=== PATIENT | female | born 1940 ===

== ENCOUNTER 2020-01-28 13:44 | Outpatient (REF) | payer MEDICARE, SELFPAY | END 2020-01-28 13:45 | disposition home or self-care (01) | LOC: HO.LAB 13:44 | PROVIDERS: Visit Provider Internal Medicine | DX: Z20.828 Contact with and (suspected) exposure to other viral communicable diseases (principal) | CPT/HCPCS: 87635 ==

== ENCOUNTER 2020-04-14 13:53 | Outpatient (REF) | payer MEDICARE, SELFPAY | END 2020-04-14 13:54 | disposition home or self-care (01) | LOC: HO.LAB 13:53 | PROVIDERS: Visit Provider Internal Medicine | DX: Z20.822 Contact with and (suspected) exposure to COVID-19 (principal) | CPT/HCPCS: 36415; C9803; U0003 ==

== ENCOUNTER 2020-05-22 12:43 | Outpatient (REF) | payer MEDICARE, SELFPAY ==
--- NOTE | ~2020-05-22 | MM_ITS ---
EXAMINATION: MM SCREENING DIGITAL BREAST TOMOSYNTHESIS, BILATERAL CLINICAL INFORMATION: Screening. Asymptomatic. The lifetime risk of breast cancer based on the Tyrer-Cuzick Model is 1%. COMPARISON: Mammography: 11/13/2018, 09/28/2017, 08/28/2014, 08/22/2014 TECHNIQUE: Digital breast tomosynthesis is performed in both the craniocaudal and mediolateral oblique views along with computer-aided detection (CAD). Synthesized 2D images are generated from the tomosynthesis. FINDINGS: There are scattered areas of fibroglandular density (ACR BI-RADS breast composition Category b). There are no significant masses, abnormal calcifications, or other abnormalities. Parenchymal pattern is similar to prior studies. No developing density. MM/MM tomosynthesis screening BI IMPRESSION: No mammographic evidence of malignancy. ASSESSMENT: BI-RADS 1: Negative RECOMMENDATION: Routine annual mammography screening. This patient's information was entered into a reminder system with a target due date for their next mammogram.
== END 2020-05-22 12:44 | disposition home or self-care (01) ==
LOC: HO.MAMMO 12:43
PROVIDERS: PCP Internal Medicine Geriatric Medicine; Visit Provider Internal Medicine Geriatric Medicine
DX: Z12.31 Encounter for screening mammogram for malignant neoplasm of breast (principal)
CPT/HCPCS: 77063; 77067

== ENCOUNTER 2020-07-07 12:40 | Outpatient (REF) | payer MEDICARE, SELFPAY ==
--- NOTE | ~2020-07-07 | XR_ITS ---
EXAMINATION: XR LUMBOSACRAL SPINE CLINICAL INFORMATION: Low back pain COMPARISON: None TECHNIQUE: Three views of the lumbosacral spine. FINDINGS: 5 nonrib-bearing lumbar vertebral bodies are visualized. Mild dextroscoliosis of the lower lumbar spine. Alignment is otherwise within normal limits. Vertebral body heights are maintained. Moderately decreased L5/S1 disc space height with mild narrowing of disc spaces throughout the remainder of the lumbar spine. There are degenerative changes of the posterior elements of the lower lumbar spine. XR/XR lumbar spine 2-3V IMPRESSION: Degenerative changes of the lumbar spine. No compression deformity.
== END 2020-07-07 12:41 | disposition home or self-care (01) ==
LOC: HO.XRAY 12:40
PROVIDERS: PCP Internal Medicine Geriatric Medicine; Visit Provider Registered Nurse
DX: M54.5 Low back pain (principal)
CPT/HCPCS: 72100

== ENCOUNTER 2021-05-26 12:14 | Outpatient (REF) | payer MEDICARE, SELFPAY ==
--- NOTE | ~2021-05-26 | MM_ITS ---
EXAMINATION: MM SCREENING DIGITAL BREAST TOMOSYNTHESIS, BILATERAL CLINICAL INFORMATION: Screening. Asymptomatic. The lifetime risk of breast cancer based on the Tyrer-Cuzick Model is 2%. COMPARISON: Mammography: 05/22/2020, 11/13/2018, 09/28/2017 TECHNIQUE: Digital breast tomosynthesis is performed in both the craniocaudal and mediolateral oblique views along with computer-aided detection (CAD). Synthesized 2D images are generated from the tomosynthesis. Additional left MLO view is provided. FINDINGS: There are scattered areas of fibroglandular density (ACR BI-RADS breast composition Category b). There are no significant masses, abnormal calcifications, or other abnormalities. Parenchymal pattern is similar to prior studies. There is no developing density or architectural abnormality. The axilla and skin contours are unremarkable. No significant changes. MM/MM tomosynthesis screening BI IMPRESSION: No mammographic evidence of malignancy. ASSESSMENT: BI-RADS 1: Negative RECOMMENDATION: Routine annual mammography screening. This patient's information was entered into a reminder system with a target due date for their next mammogram.
== END 2021-05-26 12:15 | disposition home or self-care (01) ==
LOC: HO.MAMMO 12:14
PROVIDERS: PCP Internal Medicine Geriatric Medicine; Visit Provider Internal Medicine Geriatric Medicine
DX: Z12.31 Encounter for screening mammogram for malignant neoplasm of breast (principal)
CPT/HCPCS: 77063; 77067

== ENCOUNTER 2021-09-15 10:50 | Outpatient (REF) | payer MEDICARE, SELFPAY ==
--- NOTE | ~2021-09-15 | US_ITS ---
EXAMINATION: US ABDOMEN COMPLETE CLINICAL INFORMATION: Right upper quadrant pain. COMPARISON: MRA abdomen 09/08/2008. CT abdomen and pelvis 03/21/2007. TECHNIQUE: Real-time imaging of the abdominal viscera. FINDINGS: PANCREAS: Normal. ABDOMINAL AORTA: The proximal, mid, and distal segments are normal in caliber. INFERIOR VENA CAVA: Visualized portions are normal. LIVER: Normal. The liver is normal in size. The liver contour is normal. Parenchymal echogenicity is normal. No focal hepatic lesion. There is no intrahepatic biliary duct dilatation seen. GALLBLADDER: Normal. The gallbladder is physiologically distended without evidence of stones, sludge, polyps, wall thickening or pericholecystic fluid. COMMON BILE DUCT: Normal in caliber measuring 0.7 cm in diameter. RIGHT KIDNEY: Normal. No hydronephrosis. No renal calculi or focal parenchymal lesions. The kidney measures 9.7 cm in maximum dimension. LEFT KIDNEY: There is an anechoic cyst midpole measuring 5.6 x 4.1 x 5.4 cm. No additional cysts or solid mass seen. No hydronephrosis or renal calculi. The kidney measures 11.0 cm in maximum dimension. SPLEEN: Normal. The spleen measures 8.1 cm in maximum dimension. FREE FLUID: None. US/US abdomen complete IMPRESSION: Small anechoic cyst left kidney. The rest of the abdominal ultrasound is unremarkable.
== END 2021-09-15 10:51 | disposition home or self-care (01) ==
LOC: HO.US 10:50
PROVIDERS: Visit Provider Internal Medicine Geriatric Medicine
DX: R10.11 Right upper quadrant pain (principal)
CPT/HCPCS: 76700

== ENCOUNTER 2022-07-06 13:57 | Outpatient (REF) | payer OTHER, SELFPAY ==
--- NOTE | ~2022-07-06 | MM_ITS ---
EXAMINATION: MM SCREENING DIGITAL BREAST TOMOSYNTHESIS, BILATERAL CLINICAL INFORMATION: Screening. Asymptomatic. The lifetime risk of breast cancer based on the Tyrer-Cuzick Model is 0.7%. COMPARISON: Mammography: May 26, 2021 and studies dating back to September 28, 2017 TECHNIQUE: Digital breast tomosynthesis is performed in both the craniocaudal and mediolateral oblique views along with computer-aided detection (CAD). Synthesized 2D images are generated from the tomosynthesis. FINDINGS: There are scattered areas of fibroglandular density (ACR BI-RADS breast composition Category b). There are no significant masses, abnormal calcifications, or other abnormalities. MM/MM tomosynthesis screening BI IMPRESSION: No significant changes from prior exam. ASSESSMENT: BI-RADS 1: Negative RECOMMENDATION: Routine annual mammography screening. This patient's information was entered into a reminder system with a target due date for their next mammogram.
== END 2022-07-06 13:58 | disposition home or self-care (01) ==
LOC: HO.MAMMO 13:57
PROVIDERS: PCP Internal Medicine Geriatric Medicine; Visit Provider Internal Medicine Geriatric Medicine
DX: Z12.31 Encounter for screening mammogram for malignant neoplasm of breast (principal)
CPT/HCPCS: 77063; 77067

== ENCOUNTER 2022-10-19 07:58 | Outpatient (REF) | payer OTHER, SELFPAY ==
[2022-10-19 08:08] LABS: MANUAL DIFF FLAG NO
[2022-10-19 08:18] LABS: Basophils Absolute Auto 0.1 X10*3/uL (0.0-0.2); Basophils Percent Auto 0.7 % (0-2); Eosinophils Absolute Auto 0.5 X10*3/uL (0.0-0.4); Hematocrit 41.2 % (37.0-47.0); Hemoglobin 12.7 g/dl (12.0-16.0); Imm Gran Abs Auto 0.01 X10*3/uL (0.00-0.03); Imm Gran Pct Auto 0.1 % (0.0-0.4); Lymphocytes Absolute Auto 3.1 X10*3/uL (1.2-4.9); Lymphocytes Percent Auto 45.9 % (20-40); Mean Corpuscular HGB Conc 30.8 g/dl (31.0-35.0); Mean Corpuscular Hemoglobin 25.8 pg (27.0-33.0); Mean Corpuscular Volume 83.7 fL (80.0-98.0); Mean Platelet Volume 10.3 fL (9.4-12.3); Monocytes Absolute Auto 0.5 X10*3/uL (0.1-1.2); Monocytes Percent Auto 7.3 % (2-11); Neutrophils Absolute Auto 2.7 x10*3/uL (2.0-8.3); Platelet Count 235 X10*3/uL (160-400); Red Blood Count 4.92 X10*6/uL (4.20-5.50); Red Cell Distribution Width 15.2 % (11.0-16.0); White Blood Count 6.8 X10*3/uL (4.8-10.8)
[2022-10-19 08:54] LABS: Alanine Aminotransferase 13 U/L (0-31); Alkaline Phosphatase 50 U/L (39-117); Anion Gap 12 (12-20); Aspartate Amino Transferase 18 U/L (5-31); Bilirubin Total 0.4 mg/dL (0.0-1.0); Blood Urea Nitrogen 14 mg/dL (9-16); Carbon Dioxide 29 mmol/L (22-29); Chloride 105 mmol/L (96-108); Cholesterol 169 mg/dL; Estimated Glomerular Filt Rate > 60; Glucose Random 96 mg/dL (60-115); HDL Cholesterol 48 mg/dL; LDL Cholesterol Calculated 94 mg/dl; Potassium 4.6 mmol/L (3.3-5.1); Sodium 141 mmol/L (135-145); Total Protein 7.3 g/dL (6.5-8.0); Triglycerides 137 mg/dL
[2022-10-19 08:59] LABS: TSH reflex Free T4 5.52 uIU/mL (0.32-4.0)
== END 2022-10-19 07:59 | disposition home or self-care (01) ==
LOC: HO.LAB 07:58
PROVIDERS: PCP Internal Medicine Geriatric Medicine; Visit Provider Internal Medicine Geriatric Medicine
DX: E03.9 Hypothyroidism, unspecified (principal); Z79.82 Long term (current) use of aspirin; Z79.899 Other long term (current) drug therapy
CPT/HCPCS: 36415; 80053; 80061; 84439; 84443; 85025

== ENCOUNTER 2023-05-31 12:02 | Outpatient (REF) | payer OTHER, SELFPAY ==
[2023-05-31 15:42] LABS: Free T4 (Free Thyroxine) 1.09 ng/dL (0.71-1.85)
== END 2023-05-31 12:03 | disposition home or self-care (01) ==
LOC: HO.HHCL 12:02
PROVIDERS: Visit Provider Internal Medicine Geriatric Medicine
DX: E03.9 Hypothyroidism, unspecified (principal)
CPT/HCPCS: 36415; 84439; 84443

== ENCOUNTER 2023-07-12 14:20 | Outpatient (REF) | payer OTHER, SELFPAY | END 2023-07-12 14:21 | disposition home or self-care (01) | LOC: HO.MAMMO 14:20 | PROVIDERS: PCP Internal Medicine Geriatric Medicine; Visit Provider Internal Medicine Geriatric Medicine | DX: Z12.31 Encounter for screening mammogram for malignant neoplasm of breast (principal) | CPT/HCPCS: 77063; 77067 ==

== ENCOUNTER → 2023-07-12 14:30 | Outpatient (BNV) | payer OTHER, SELFPAY | PROVIDERS: PCP Internal Medicine Geriatric Medicine; Visit Provider Radiology Diagnostic Radiology | DX: Z12.31 Encounter for screening mammogram for malignant neoplasm of breast (principal) | CPT/HCPCS: 77063; 77067 ==

== ENCOUNTER 2023-07-13 17:35 | Emergency (ER) | payer OTHER, SELFPAY ==
--- NOTE | ~2023-07-13 | CT_ITS ---
EXAMINATION: CT ABDOMEN AND PELVIS WITH CONTRAST CLINICAL INFORMATION: Upper abdominal pain COMPARISON: Ultrasound abdomen 09/15/2021 TECHNIQUE: Multidetector volumetric images were obtained from the superior aspect of the liver through the pubic symphysis following administration 85 mL of Omnipaque 350 intravenous contrast. Sagittal and coronal reformatted images were obtained on the technologist's workstation. Oral contrast: No This CT examination was performed using dose optimization techniques as appropriate, variously including the following: *Automated exposure control *Adjustment of mA and/or kV according to patient size (this includes techniques or standardized protocols for targeted exams where dose is matched to indication/reason for exam; i.e. extremities or head) *Use of iterative reconstruction technique DLP: 504 mGy-cm FINDINGS: LUNG BASES: The visualized lung bases are unremarkable. LIVER, GALLBLADDER, AND BILIARY TREE: The liver is normal in size, shape, and attenuation. No focal hepatic lesion or biliary ductal dilatation is present. The gallbladder is unremarkable with no evidence of radiopaque gallstones, gallbladder wall thickening, or obvious pericholecystic inflammatory changes. PANCREAS: Unremarkable. SPLEEN: Unremarkable. ADRENAL GLANDS: Unremarkable. KIDNEYS AND URETERS: The kidneys are normal in size, shape, and attenuation. No hydronephrosis, hydroureter, or calculi seen. No perinephric stranding. A benign left posterior mid renal 5.0 cm Bosniak class I renal cyst is noted which requires no additional imaging or follow up. No solid renal masses are seen. BLADDER: Unremarkable. GASTROINTESTINAL TRACT: The small and large bowel are unremarkable. The appendix is not seen but there is no evidence of appendicitis evidence of appendicitis. ABDOMINAL WALL: No significant hernia is appreciated. LYMPH NODES: Normal. VASCULAR: Unremarkable. PELVIC VISCERA: The uterus is not seen. An abnormal adnexal mass is not detected. No free intraperitoneal fluid is present. OSSEOUS STRUCTURES: Unremarkable. CT/CT abdomen pelvis w IV con IMPRESSION: A cause for the patient's upper abdominal pain has not been found. Incidental note made of a benign left renal cyst which requires no additional imaging or follow up. Fleischner guidelines were followed.
--- NOTE | ~2023-07-13 | XR_ITS ---
EXAMINATION: XR CHEST CLINICAL INFORMATION: Cough COMPARISON: 12/16/2017 TECHNIQUE: 2 views of the chest were obtained. FINDINGS: No significant abnormality is noted involving the heart, lungs, mediastinum, bony thorax or soft tissues. XR/XR chest 2V IMPRESSION: Unremarkable examination.
[2023-07-13 17:42] VITALS: BP 139/52; PULSE 87; RESP 20; TEMP 37.1; O2SAT 98; BMI 29.4
--- NOTE | 2023-07-13 17:42 | ED.ABDPAIN ---
HPI - Abdominal Pain General Chief Complaint: Upper Respiratory Symptoms Stated Complaint: Abd pain Time Seen by Provider: 07/13/23 18:19 Source: patient, family (Great granddaughter), RN notes reviewed, old records reviewed and guest services representative Mode of arrival: ambulatory Limitations: language barrier History of Present Illness HPI narrative: 83-year-old female presents for evaluation of nausea, cough, sore throat. Patient reports that her symptoms started Monday night. She had some upper abdominal pain which has improved. She still complains of a dull, 2/10 pain The patient is a somewhat poor historian Her chief complaint appears to be nausea. Denies any shortness of breath but if soften The patient's vital signs on arrival to the ED are stable. 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 The patient's speech is unchanged Related Data Previous Rx's ?Medication ?Instructions ?Recorded ondansetron 4 mg disintegrating 4 mg PO Q8H PRN nausea and 07/13/23 tablet vomiting #20 tabs Allergies Allergy/AdvReac Type Severity Reaction Status Date / Time gadoteridol [From Prohance] Allergy Mild HIVES Verified 07/13/23 17:44 Review of Systems Constitutional: Reports body ache(s), Denies chills, Denies fever(s) and Denies headache(s) Eyes: Denies blurry vision Denies dizziness, Denies headache(s) and Reports sore throat Cardiovascular: Denies chest pain, Denies syncope and Denies dyspnea Respiratory: Reports cough and Denies dyspnea Gastrointestinal: Reports abdominal pain, Reports nausea and Reports vomiting Genitourinary: Denies dysuria and Denies pelvic pain Musculoskeletal: Denies back pain Skin/Breast: Denies rash Denies dizziness, Denies syncope and Denies headache(s) Psychiatric: Denies anxiety and Denies depression [facility] Social History Social History Advance Directives: No Advance Directives Information Provided: No Physical Exam ED Vital Signs: Vital Signs - 24 hr 07/13/23 17:42 07/13/23 19:00 Temperature 98.7 F 97.5 F Pulse Rate 87 78 Respiratory Rate 20 18 Blood Pressure 139/52 L 134/58 L Pulse Oximetry 98 95 Oxygen Delivery Method Room Air Room Air BMI result Body Mass Index 29.4 Const General: healthy appearing, comfortable, no acute distress, alert and awake Nutritional Appearance: well nourished Orientation/consciousness: patient oriented x3 HENMT Head: Yes normocephalic and Yes atraumatic Throat: Yes posterior oropharynx normal Eyes Eyelids: Yes eyelids normal Conjunctivae: conjunctivae normal Sclerae: sclerae normal Corneas: corneas normal Pupils: Equal, round and reactive pupils present EOM: EOMs intact bilaterally Neck Neck: Yes full ROM Resp Effort & Inspection: normal respiratory effort, able to speak in complete sentences, no audible wheezes and not labored Auscultation: clear to auscultation bilaterally Cardio Rate: regular rate Rhythm: regular rhythm GI Inspection: No distended Palpation (GI): Soft to palpation, not firm, Tenderness to palpation present (GI) in the epigastrum, in the LUQ and in the RUQ; not in the LLQ, not in the RLQ and with no rebound tenderness, no guarding and not rigid Skin General skin exam: elasticity normal Neuro General: patient oriented x3 Cranial nerves: Yes Equal, round and reactive pupils present and Yes Bilaterally intact EOM present Cognition (Neuro): normal cognition Extrem Other: Moving all extremities well without any obvious deformities Course Course Course Narrative: This is a Rapid Medical Examination (RME) in triage, full HPI, ROS, assessment and plan per primary provider in the Main ED. 83 yo Citizen Of The [place] speaking female presenting for evaluation of congestion, hoarse voice, cough for the last few days along with upper abdominal pain that occurred last night. No current abdominal pain. Plan: labs, CXR, viral swabs Medical Decision Making Medical Decision Making MDM Narrative: 83-year-old female presents for evaluation of nausea, flu-like symptoms and body aches. Her vital signs are stable on arrival. Her physical exam is reassuring. She is tender across the upper abdomen. She has no leukocytosis, anemia or left shift. She has no significant electrolyte abnormalities. LFTs are within normal limits, renal function within normal limits. Patient's flu swabs are negative. Strep test pending. Patient's chest x-ray is unremarkable. Clear the cause of her symptoms at this time but may be related to viral syndrome. Plan for CT scan of the abdomen pelvis to evaluate for additional pathology. Differential Diagnosis Differential Diagnoses: The differential diagnosis associated with the presentation includes Viral syndrome Upper respiratory infection Gastritis Peptic ulcer disease Biliary colic Pancreatitis Influenza Viral syndrome Strep pharyngitis Lab Data [facility] Lab Attestation statement: I reviewed the patient's lab results. See above 07/13/23 18:07 07/13/23 18:07 Labs: Lab Results 07/13/23 07/13/23 Range/Units 18:07 20:30 WBC 10.1 (4.8-10.8) X10*3/uL RBC 4.82 (4.20-5.50) X10*6/uL Hgb 12.5 (12.0-16.0) g/dl Hct 38.9 (37.0-47.0) % MCV 80.7 (80.0-98.0) fL MCH 25.9 L (27.0-33.0) pg MCHC 32.1 (31.0-35.0) g/dl RDW 15.9 (11.0-16.0) % Plt Count 239 (160-400) X10*3/uL MPV 9.7 (9.4-12.3) fL Immature Gran % (Auto) 0.4 (0.0-0.4) % Neut % (Auto) 66.1 (45-73) % Lymph % (Auto) 24.6 (20-40) % [place] % (Auto) 6.2 (2-11) % Eos % (Auto) 2.1 (0-4) % Baso % (Auto) 0.6 (0-2) % Lymph # (Auto) 2.5 (1.2-4.9) X10*3/uL [place] # (Auto) 0.6 (0.1-1.2) X10*3/uL Eos # (Auto) 0.2 (0.0-0.4) X10*3/uL Baso # (Auto) 0.1 (0.0-0.2) X10*3/uL Abs Immat Gran (auto) 0.04 H (0.00-0.03) X10*3/uL Absolute Neuts (auto) 6.7 (2.0-8.3) x10*3/uL Absolute Nucleated RBC 0.000 (0.0-0.012) X10*3/uL Nucleated RBC % (auto) 0.0 (0.0-0.2) /100WBC Sodium 137 (135-145) mmol/L Potassium 3.6 (3.3-5.1) mmol/L Chloride 103 (96-108) mmol/L Carbon Dioxide 25 (22-29) mmol/L Anion Gap 13 (12-20) BUN 15 (9-16) mg/dL Creatinine 0.94 (0.5-1.4) mg/dL Estim Creat Clear Calc 37.4 Estimated GFR 57 Random Glucose 137 H (60-115) mg/dL Calcium 9.5 (8.4-10.2) mg/dL Magnesium 2.1 (1.6-2.6) mg/dL Total Bilirubin 0.5 (0.0-1.0) mg/dL Direct Bilirubin 0.2 (0.0-0.5) mg/dL AST 17 (5-31) U/L ALT 11 (0-31) U/L Alkaline Phosphatase 52 (39-117) U/L Total Protein 7.6 (6.5-8.0) g/dL Albumin 4.1 (3.5-5.0) g/dL Lipase 19 (8-78) U/L Influenza Type A (PCR) NEGATIVE (Negative) Influenza Type B (PCR) NEGATIVE (Negative) RSV RNA Qual (PCR) NEGATIVE (Negative) SARS-CoV-2 RNA (RT-PCR) NEGATIVE (Negative) S. pyogenes GrpA ESTEFANY Negative (Negative) Medications Administered Discontinued Medications Generic Name Dose Route Start Last Admin Trade Name Freq PRN Reason Stop Dose Admin Acetaminophen 650 mg 07/13/23 18:36 07/13/23 19:06 Acetaminophen 325 Mg Tablet PO 07/13/23 18:37 650 mg ONCE ONE Administration Ondansetron HCl 4 mg 07/13/23 18:36 07/13/23 19:06 Ondansetron Odt 4 Mg Tab.Rapdis TRANSLINGU 07/13/23 18:37 4 mg ONCE ONE Administration Discharge Plan Discharge Clinical Impression: Acute upper abdominal pain, Nausea Patient Disposition: Home, Self-Care Instructions: Acute Nausea and Vomiting (ED) Additional Instructions: Your workup in the emergency room today was reassuring. This includes your blood work, CT scan as well as your viral swabs. You may use Zofran as needed for nausea/vomiting Follow-up with your primary doctor You may wish to see a GI doctor if her symptoms persist for an upper endoscopy Prescriptions: New ondansetron 4 mg tablet,disintegrating 4 mg PO Q8H PRN (Reason: nausea and vomiting) Qty: 20 0RF Print Language: Citizen Of [place]
[2023-07-13 18:13] LABS: Basophils Absolute Auto 0.1 X10*3/uL (0.0-0.2); Basophils Percent Auto 0.6 % (0-2); Eosinophils Absolute Auto 0.2 X10*3/uL (0.0-0.4); Eosinophils Percent Auto 2.1 % (0-4); Hematocrit 38.9 % (37.0-47.0); Hemoglobin 12.5 g/dl (12.0-16.0); Imm Gran Abs Auto 0.04 X10*3/uL (0.00-0.03); Imm Gran Pct Auto 0.4 % (0.0-0.4); Lymphocytes Absolute Auto 2.5 X10*3/uL (1.2-4.9); Lymphocytes Percent Auto 24.6 % (20-40); MANUAL DIFF FLAG NO; Mean Corpuscular HGB Conc 32.1 g/dl (31.0-35.0); Mean Corpuscular Hemoglobin 25.9 pg (27.0-33.0); Mean Corpuscular Volume 80.7 fL (80.0-98.0); Mean Platelet Volume 9.7 fL (9.4-12.3); Monocytes Absolute Auto 0.6 X10*3/uL (0.1-1.2); Monocytes Percent Auto 6.2 % (2-11); Neutrophils Absolute Auto 6.7 x10*3/uL (2.0-8.3); Neutrophils Percent Auto 66.1 % (45-73); Platelet Count 239 X10*3/uL (160-400); Red Blood Count 4.82 X10*6/uL (4.20-5.50); Red Cell Distribution Width 15.9 % (11.0-16.0); White Blood Count 10.1 X10*3/uL (4.8-10.8)
[2023-07-13 18:28] LABS: Alanine Aminotransferase 11 U/L (0-31); Albumin Level 4.1 g/dL (3.5-5.0); Alkaline Phosphatase 52 U/L (39-117); Anion Gap 13 (12-20); Aspartate Amino Transferase 17 U/L (5-31); Bilirubin Direct 0.2 mg/dL (0.0-0.5); Bilirubin Total 0.5 mg/dL (0.0-1.0); Blood Urea Nitrogen 15 mg/dL (9-16); Calcium 9.5 mg/dL (8.4-10.2); Carbon Dioxide 25 mmol/L (22-29); Chloride 103 mmol/L (96-108); Creatinine Clr Calc Pharmacy 37.4; Estimated Glomerular Filt Rate 57; Glucose Random 137 mg/dL (60-115); Lipase 19 U/L (8-78); Magnesium 2.1 mg/dL (1.6-2.6); Potassium 3.6 mmol/L (3.3-5.1); Sodium 137 mmol/L (135-145); Total Protein 7.6 g/dL (6.5-8.0)
[2023-07-13 18:49] LABS: Influenza A PCR NEGATIVE (Negative); Influenza B PCR NEGATIVE (Negative); Resp Syncy Virus RNA Qual PCR NEGATIVE (Negative); SARS COV2 PCR INHOUSE NEGATIVE (Negative)
[2023-07-13 19:00] VITALS: BP 134/58; PULSE 78; RESP 18; TEMP 36.4; O2SAT 95
[2023-07-13] MEDS: Acetaminophen 325 MG TABLET 650 MG PO (19:06)
[2023-07-13] MEDS: Ondansetron ODT 4 MG TAB.RAPDIS TRANSLINGU (19:06)
[2023-07-13 20:44] LABS: IDNOW Serial# 08D9AD1C; Strep A Nucleic Acid Negative (Negative)
[2023-07-13 22:12] VITALS: BP 134/58; PULSE 78; RESP 18; TEMP 36.4; O2SAT 95
== END 2023-07-13 22:13 | disposition home or self-care (01) ==
PROVIDERS: Physician Assistant; Emergency Provider Internal Medicine
DX: R10.10 Upper abdominal pain, unspecified (principal); R11.0 Nausea; R05.9 Cough, unspecified; J02.9 Acute pharyngitis, unspecified; Z03.818 Encounter for observation for suspected exposure to other biological agents ruled out; Z79.899 Other long term (current) drug therapy
CPT/HCPCS: 0241U; 71046; 74177; 80048; 80076; 83690; 83735; 85025; 87651; 99283; 99284

== ENCOUNTER 2023-08-23 06:23 | Outpatient (REF) | payer OTHER, SELFPAY | END 2023-08-23 06:24 | disposition home or self-care (01) | LOC: HO.LAB 06:23 | PROVIDERS: PCP Internal Medicine Geriatric Medicine; Visit Provider Internal Medicine Geriatric Medicine | DX: Z13.89 Encounter for screening for other disorder (principal) ==

== ENCOUNTER 2023-08-25 09:23 | Outpatient (REF) | payer OTHER, SELFPAY ==
[2023-08-25 09:35] LABS: Appearance Urine Clear; Color Urine Yellow; Glucose Urine UA Negative (Negative); Leukocyte Esterase Urine Small (1+) (Negative); Nitrite Urine Negative (Negative); UMIC TRIGGER UACC YES; Urine Blood Negative (Negative); Urine Ketones Trace mg/dL (Negative); Urine Protein Negative (Neg-Trace)
[2023-08-25 09:51] LABS: Bacteria Urine None Seen (None Seen); Hyaline Casts Urine 0-2 /LPF (0-2); RBC Urine 0-2 /HPF (0-2); UACC Culture Trigger YES; WBC Urine 0-5 /HPF (0-5)
== END 2023-08-25 09:24 | disposition home or self-care (01) ==
LOC: HO.LNP 09:23
PROVIDERS: Visit Provider Internal Medicine Geriatric Medicine
DX: R82.90 Unspecified abnormal findings in urine (principal)
CPT/HCPCS: 81001; 87086

== ENCOUNTER 2023-12-22 14:03 | Outpatient (REF) | payer OTHER, SELFPAY ==
--- NOTE | ~2023-12-22 | XR_ITS ---
EXAMINATION: XR KNEE, RIGHT CLINICAL INFORMATION: Chronic right knee pain COMPARISON: None available. TECHNIQUE: Four views of the right knee. FINDINGS: Mild medial and patellofemoral compartment osteoarthritis with a small joint effusion. Prominent patellar enthesopathy. No acute fracture. XR/XR knee RT 3V IMPRESSION: Mild medial and patellofemoral compartment osteoarthritis with a small joint effusion. Electronically signed by: Fernando Mcdowell MD 12/22/2023 03:32 PM EDT
== END 2023-12-22 14:04 | disposition home or self-care (01) ==
LOC: HO.HHCX 14:03
PROVIDERS: Visit Provider Student in an Organized Health Care Education/Training Program
DX: M25.561 Pain in right knee (principal); G89.29 Other chronic pain; R60.0 Localized edema
CPT/HCPCS: 73562

== ENCOUNTER 2024-01-30 12:39 | Outpatient (AMB) | payer OTHER, SELFPAY ==
--- NOTE | 2024-01-30 13:00 | MHC.OFFVIS ---
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 The patient describes her pain as sharp in nature. She denies any previous surgeries on her right knee. She denies any locking or giving way. She has not had a cortisone injection. She has done range of motion exercises which seemed to aggravate her pain. She denies any locking or giving way. Allergies gadoteridol [From [employer]] Allergy (Mild, Verified 07/13/23 17:44) HIVES Medication List - Last Reviewed 01/30/24 by ROHAN Cotto aspirin 81 mg PO DAILY diclofenac sodium 1% 2 grams topical Q12H levothyroxine mcg PO omeprazole 20 mg PO DAILY ondansetron 4 mg PO Q8H PRN simvastatin 40 mg PO BEDTIME PFSH Social History (Updated 01/30/24 @ 13:04 by ROHAN Cotto) Alcohol intake: never Patient Tobacco Use Status: Never used Tobacco Physical Exam Vital Signs: BMI result Body Mass Index 33.2 Const Other: Well-nourished well-developed very friendly female awake alert and oriented x3 in no acute distress Extrem Other: Bilateral lower extremity examination shows good capillary refill, no skin lesions noted, normal sensation light touch Right knee examination shows a minimal effusion, palpable crepitus with range of motion, pain with range of motion, no instability Office Procedures Joint Injection/Aspiration Joint Injection/Aspiration Primary Site: right knee Prep: site was prepped using aseptic technique Injected: 40 mg of, DepoMedrol and 1% plain lidocaine Procedure: The patient tolerated the procedure well Coding 93696 - Large joint Procedure code (CPT) selection complete Results Reviewed Results Reviewed: X-rays of the patient's right knee show moderate diffuse joint space narrowing, subchondral sclerosis, no acute bony abnormalities Assessment & Plan Assessment & Plan (1) Arthritis of right knee: Code(s): M17.11 - Unilateral primary osteoarthritis, right knee Category: Medical Plan Ms. Jad Jimenez presents with right knee pain due to degenerative joint disease. I had a lengthy discussion regarding the treatment options. The risks and benefits of a right knee cortisone injection were discussed at length with the patient. The patient wished to proceed. She tolerated the injection well. She will continue with her home exercise program. She will contact me prior to her follow-up appointment in 3 months should any questions or concerns arise. Feel free to call me at any time should questions regarding her orthopedic management arise. I spent 20 minutes in reviewing the patient's records and imaging studies, seeing the patient and documenting in the medical record. Orders: Orders AMB Joint Injection/Aspiration Today M17.11 - Unilateral primary osteoarthritis, right knee Coding Level of Care Code New Pt Level 3 (23244) Complex EM visit Add On G2211 Diagnoses Arthritis of right knee M17.11 CPT Codes Coding - 74081 Large joint: 90573 - Large joint ([id number])
[2024-01-30 13:02] VITALS: BMI 33.2
== END 2024-01-30 13:16 | disposition home or self-care (01) ==
LOC: HO.HOS 12:39
PROVIDERS: PCP Internal Medicine Geriatric Medicine; Visit Provider Orthopaedic Surgery
DX: M17.11 Unilateral primary osteoarthritis, right knee (principal)
CPT/HCPCS: 20610; 99203

== ENCOUNTER → 2024-01-30 12:39 | Outpatient (BNVA) | payer OTHER, SELFPAY | PROVIDERS: PCP Internal Medicine Geriatric Medicine; Visit Provider Orthopaedic Surgery | DX: M17.11 Unilateral primary osteoarthritis, right knee (principal) | CPT/HCPCS: 20610; 99202; J1010; J2003 ==

== ENCOUNTER 2024-02-20 06:08 | Outpatient (REF) | payer OTHER, SELFPAY ==
[2024-02-20 07:58] LABS: TSH reflex Free T4 7.89 uIU/mL (0.32-4.0)
[2024-02-20 08:35] LABS: Free T4 (Free Thyroxine) 0.89 ng/dL (0.71-1.85)
== END 2024-02-20 06:09 | disposition home or self-care (01) ==
LOC: HO.LAB 06:08
PROVIDERS: PCP Internal Medicine Geriatric Medicine; Visit Provider Internal Medicine Geriatric Medicine
DX: E03.9 Hypothyroidism, unspecified (principal)
CPT/HCPCS: 36415; 84439; 84443

== ENCOUNTER 2024-06-06 10:10 | Outpatient (REF) | payer OTHER, SELFPAY ==
--- OUTSIDE RECORDS SUMMARY | 2024-06-06 11:56 | XMS_ITS | Encounter Summary ---
Author Organization [employer] Address [address] [place] [address] Care Team Providers Care Pressure Tank Operator Name Role Phone Name, Brent PRESTON Primary Care Provider [phone] Reason for Visit * Reason Onset Date Comments Nurse Triage 06/05/2024 Encounter Details Date Type Department Care Team ([facility] st Contact Info) Description 06/05/2024 Telephone [facility] MEDICINE [address], [place] [id number] Name, MD Brent [address] [place] [address] Nurse Triage Social History Tobacco Use Types Packs/Day Years Used Date Smoking Tobacco: Never Smokeless Tobacco: Never Alcohol Use Standard Drinks/Week Comments Never 0 (1 standard drink = 0.6 oz pur e alcohol) Depression Answer Date Recorded Patient Health Questionnaire-9 Score 3 12/22/2023 Patient Health Questionnaire-9 Score 3 12/22/2023 Last PHQ-9: Questionnaire Data Not on file 0 12/22/2023 Housing Stability Answer Date Recorded What is your housing situation today? I have [address] [place] 12/22/[address] you li ve. Do you have problems with any of the following? None of the above 12/22/2023 Food Insecurity Answer Date Recorded Within the past 12 months, y ou worried that your food would run out before you got money to buy more: Never True 12/22/2023 Within the past 12 months,th e food you bought just didn't last and you didn't have enough money to get more: Never True Transportation Answer Date Recorded In the past 12 months, has l ack of transportation kept you from medical appts, meetings, work or from getting things needed for daily living? No 12/22/2023 Utilities Answer Date Recorded In the past 12 months, has t he electric, gas, oil or water company threatened to shut off services in your home? No 02/21/2024 Depression Answer Date Recorded Patient Health Questionnaire-2 Score 2 12/22/2023 Internet Access Answer Date Recorded Internet Access Q1 No 02/21/2024 Internet Access Q2 Not on file 02/21/2024 Comments Unknown Sex and Gender Information Value Date Recorded Sex Assigned at Female 01/31/2022 10:15 AM EDT Legal Sex Female 10:15 AM EDT Gender Identity Female 01/31/2022 10:15 AM EDT Sexual Orientation Straight 12/22/2023 3: 16 PM EDT documented as of this encounter Miscellaneous Notes * Telephone Encounter - Adriana Jaimes RN - 06/05/2024 3:07 PM EST No interpreter for the deaf needed as this news writer speaks [place]. Call returned to Diane Jimenez to triagebelow. Having abdominal pain x 3 days. Pain after solid foods. Pt reports having black formed stools. No vomiting. No urinary sx reported. Pt does have GERD and hx of ulcers. Pain resolves after BM. Pt has not had any fever. No MICHAEL sx or rash. 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 Protocol Used: Abdominal Pain - Female (Adult) Protocol-Based Disposition: See in Office or Video Visit Today Video visit offer not recorded Positive Triage Question: * Moderate pain (e.g., interferes with normal activities that comes and goes (cramps) lasts > 24hours (Exception: Pain with Vomiting or Diarrhea - see that Protocol.) * All higher-acuity triage questions were negative Care Advice Discussed: * Reassurance and Education - Mild Stomachache * Avoid Aspirin and NSAIDs * Reasons To Call Back - Severe pain lasts over 1 hour - Constant pain lasts over 2 hours - You become worse * Telephone Encounter - Wili Farrar - 06/05/2024 1:54 PM EST Symptoms: Abdominal Pain - Female - Not , Stools - Unusual Color Outcome: Schedule an urgent appointment (within 1 hour) or talk to a nurse or provider soon Reason: Color is red or black The caller accepted this outcome. Contact pt at [phone] documented in this encounter Plan of Treatment Not on file documented as of this encounter Visit Diagnoses Not on filedocumented in this encounter Additional Health Concerns Assessment Noted Time PHQ-9 Depression Total Score: 3 12/22/19 24 1:27 PM EDT documented as of this encounter Care Teams Pressure Tank Operator Relationship Specialty Start Date End Date Name, MD Brent [address] [place] [address] PCP - General Family Medicine 06/29/15 documented as of this encounter
--- OUTSIDE RECORDS SUMMARY | 2024-06-06 11:56 | XMS_ITS | Encounter Summary ---
Author Organization [facility] Address [address] [place] [address] Care Team Providers Care Volunteer Services Assistant Name Role Phone Name, Brent PRESTON Primary Care Provider [phone] Reason for Referral * Imaging (STAT) - Pending Review Specialty Diagnoses / Procedures Referred By Barron hallman Referred To Contact Radiology Diagnoses Generalized abdominal pain Procedures CT Abdomen Pelvis w/ Contrast Kecia Paniagua DO [address] [place] [address] Phone: tel: fax: [address] Phone: tel: fax: Referral ID Status Reason Start Date Expiration Date V isits Requested Visits Authorized [id number] Pending Review 06/06/2024 06/06/2025 1 1 Encounter Details Date Type Department Care Team (Late st Contact Info) Description 06/06/2024 9:00 AM EST Office Visit [facility] [address] [place], [place] [phone] Kecia Paniagua DO [address] [place], [place] [phone] Generalized abdominal pain (Primary Dx) Social History Tobacco Use Types Packs/Day Years [...] PM EDT documented as of this encounter Last Filed Vital Signs Vital Sign Reading Time Taken Comments Blood Pressure 144/66 06/06/2024 9:16 AM EST Pulse 73 06/06/2024 9:16 AM EST Temperature 36.6 ??C (97.9 ??F) 06/06/2024 9:16 AM ES T Respiratory Rate 18 06/06/2024 9:16 AM EST Oxygen Saturation 99% 06/06/2024 9:16 AM EST Inhaled Oxygen Concentration - - Weight 68 kg (150 lb) 06/06/2024 9:16 AM EST Height 154.9 cm (5' 1 ) 06/06/2024 9:16 AM EST Body Mass Index 28.34 06/06/2024 9:16 AM EST documented in this encounter Progress Notes * Kecia Paniagua, DO - 06/06/2024 9:00 AM EST SUBJECTIVE Diane Jimenez is a 84 y.o. female who presents for Sick Visit. She presents to [place] today c/o intermittent abd pain x 3 days. She says she gets lower abd pain when she eats heavier foods. She says she has never had this pain before. She denies any N/V or diarrhea. She says that she had constipation in the past but not any more. She says that her stools have been very dark brown for the last 3 days but nml today. She had anosebleed on Monday. She denies any BRBPR. She says that her abd pain goes away after she has a BM.She has also tried tylenol which resolves her pain. She has a h/o ulcers and takes prilosec daily. Her COMPOUNDING PHARMACY TECHNICIAN says that she used to see GI but stopped going because God healed her. She denies any urinary sx. She denies any urinary urgency or other urinary sx. No recent abx use. She says she recently traveled to [place], but no travel outside the . History provided by: Patient and relative director of casework department used: Yes Abdominal Pain This is a new problem. The current episode started in the past 7 days. The onset quality is sudden.The problem occurs intermittently. The problem has been unchanged. The pain is located in the LLQ and RLQ. The pain is moderate. The quality of the pain is colicky. The abdominal pain does not radiate. Pertinent negatives include no constipation, diarrhea, dysuria, fever, frequency, headaches, hematuria, nausea or vomiting. The pain is aggravated by eating. The pain is relieved by Palpation. She has tried acetaminophen for the symptoms. The treatment provided mild relief. Her past medical history is significant for PUD. Review of Systems Constitutional: Negative for activity change, appetite change, chills, fever and unexpected weight change. HENT: Nosebleeds: x1. Respiratory: Negative for cough and shortness of breath. Cardiovascular: Negative for chest pain, palpitations and leg swelling. Gastrointestinal: Positive for abdominal pain. Negative for abdominal distention, blood in stool, constipation, diarrhea, nausea, rectal pain and vomiting. Genitourinary: Negative for difficulty urinating, dysuria, flank pain, frequency, hematuria, urgency, vaginal discharge and vaginal pain. Neurological: Negative for weakness and headaches. 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 Constitutional: General: She is not in acute distress. Appearance: Normal appearance. Cardiovascular: Rate and Rhythm: Normal rate and regular rhythm. Heart sounds: Normal heart sounds. No murmur heard. Pulmonary: Effort: Pulmonary effort is normal. Breath sounds: Normal breath sounds. No wheezing or rhonchi. Abdominal: Tenderness: There is generalized abdominal tenderness. There is no right CVA tenderness, left CVA tenderness, guarding or rebound. Genitourinary: Rectum: Normal. Guaiac result negative. Neurological: General: No focal deficit present. Mental Status: She is alert and oriented to person, place, and time. Psychiatric: Mood and Affect: Mood normal. Assessment/Plan Diagnoses and all orders for this visit: Generalized abdominal pain Intermittent sx with diffuse TTP on exam, possible colitis -check basic labs -check UA/Ucx to r/o UTI -referred for STAT CT abd/pelvis -cont tylenol prn -advised rtc or go to ED if severe worsening pain, vomiting, or fevers --Follow-up with PCP as scheduled or sooner prn-- Current Outpatient Medications: acetaminophen (Tylenol) 500 MG tablet, Take 1 tablet by mouth every 6 (six) hours., Disp: , Rfl: aspirin (Aspirin Low Dose) 81 MG EC tablet, TAKE 1 TABLET BY MOUTH EVERYDAY AT NOON, Disp: 90 tablet, Rfl: 1 Calcium Carb-Cholecalciferol 600-10 MG-MCG tablet, TAKE 1 TABLET BY MOUTH TWICE DAILY AT NOON AND IN THE EVENING, Disp: 180 tablet, Rfl: 3 Diclofenac Sodium 1 % gel, APPLY 2 GRAMS TOPICALLY EVERY TWELVE HOURS, Disp: 100 g, Rfl: 1 docusate sodium (Colace) 100 MG capsule, TAKE 1 CAPSULE BY MOUTH TWICE DAILY AT NOON AND IN THE EVENING, Disp: 180 capsule, Rfl: 0 estradiol (Estrace) 0.1 MG/GM vaginal cream, Insert 1 g into the vagina 2 (two) times a week., Disp: 42.5 g, Rfl: 2 levothyroxine (Synthroid, Levoxyl) 100 MCG tablet, TAKE 1 TABLET BY MOUTH EVERY MORNING ON MONDAY THROUGH MONDAY OF EACH WEEK (HOLD ON MONDAY AND MONDAY), Disp: 90 tablet, Rfl: 2 lidocaine (Lidoderm) 5 % patch, APPLY 1 PATCH TOPICALLY TO SKIN, LEAVE ON FOR 12 HOURS AND OFF FOR 12 HOURS DIRECTED, Disp: 30 patch, Rfl: 1 mirabegron ER (Myrbetriq) 50 MG 24 hr tablet, Take 1 tablet by mouth in the morning. Swallow whole with water. Do not crush, chew and/or divide, Disp: , Rfl: omeprazole (PriLOSEC) [address] capsule, TAKE 1 CAPSULE BY MOUTH EVERYDAY AT NOON BEFORE MEALS, Disp: 90 capsule, Rfl: 1 simvastatin (Zocor) 40 MG tablet, TAKE 1 TABLET BY MOUTH AT BEDTIME, Disp: 90 tablet, Rfl: 1 Scribe Attestation: Deshawn Kaur, am serving as a scribe to document services personally performed by Kecia Benjamin, based on the patient's response to questions by provider and provider's statements to me. 06/06/24 9:59 AM Physicians Attestation: Kecia Kaur DO, have reviewed the information by the scribe, Deshawn Renteria, for accuracy and agree with its content. documented in this encounter Plan of Treatment Scheduled Orders Name Type Priority Associated Diagnoses Orde r Schedule T4, Free Lab Routine Generalized abdominal pain Expected: 06/06/2024 (Approximate), Expires: 06/06/2025 Lipid Panel, Standard Lab Routine Generalized abdominal pain Expected: 06/06/2024 (Approximate), Expires: 06/06/2025 TSH Lab Routine Generalized abdominal pain Expected: 06/06/2024 (Approximate), Expires: 06/06/2025 Vitamin D, 25-Hydroxy, Total, Immunoassay Lab Routine Generalized abdominal pain Expected: 06/06/2024 (Approximate), Expires: 06/06/2025 Hepatic Function Panel Lab Routine Generalized abdominal pain Expected: 06/06/2024 (Approximate), Expires: 06/06/2025 Hemoglobin A1c Lab Routine Generalized abdominal pain Expected: 06/06/2024 (Approximate), Expires: 06/06/2025 CBC Lab Routine Generalized abdominal pain Expected: 06/06/2024, Expires: 06/06/2025 Basic Metabolic Panel Lab Routine Generalized abdominal pain Expected: 06/06/2024 (Approximate), Expires: 06/06/2025 Amylase Lab Routine Generalized abdominal pain Expected: 06/06/2024 (Approximate), Expires: 06/06/2025 Lipase Lab Routine Generalized abdominal pain Expected: 06/06/2024, Expires: 06/06/2025 CT Abdomen Pelvis w/ Contrast Imaging STAT Generalized abdominal pain Expected: 06/06/2024, Expires: 06/06/2025 Culture, Urine, Routine Microbiology Routine Generalized abdominal pain Ordered: 06/06/2024 documented as of this encounter Procedures Procedure Name Priority Date/Time Associated Diagnosis Comments POCT URINALYSIS DIPSTICK Routine 06/06/2024 10:08 AM EST Generalized abdominal pain POCT HEMOGLOBIN Routine 06/06/2024 9:54 AM EST Generalized abdominal pain documented in this encounter Results * (ABNORMAL) POCT Urinalysis (06/06/2024 10:08 AM EST) Color, UA Yellow Clarity, UA Clear Glucose, UA Negative Bilirubin, UA Trace Comment:Small Ketones, UA Positive Comment:Trace Spec Grav, UA 1.025 Blood, UA Positive(A) Negative, None Detected Comment:Trace-Intact pH, UA 6.0 Protein, UA 3+ 500+++ Comment:30mg/dL Urobilinogen, UA 1.0 Leukocytes, UA Trace Negative, Rare, Trace Nitrite, UA Negative Negative, None Detected Appearance, UA clear QC Media Lot # [id number] Lot# Expiration Date Urine 06/06/2024 10:0 8 AM EST Kecia Paniagua DO POINT OF CARE TEST ENTER/NIMA T ORDERABLES Final Result * POCT Hemoglobin (06/06/2024 9:54 AM EST) Hemoglobin 13.1 12.0 - 15.0 QC Media Lot # [id number] Lot# Expiration Date Blood 06/06/2024 9:54 AM EST Kecia Paniagua DO POINT OF CARE TEST ENTER/NIMA T ORDERABLES Final Result documented in this encounter Visit Diagnoses Diagnosis Generalized abdominal pain- Primary Abdominal pain, generalized documented in this encounter Additional Health Concerns Assessment Noted Time PHQ-9 Depression Total Score: 3 12/22/19 24 1:27 PM EDT documented as of this encounter Care Teams Volunteer Services Assistant Relationship Specialty Start Date End Date Name, MD Brent [address] [place] [address] PCP - General Family Medicine 06/29/15 documented as of this encounter
--- OUTSIDE RECORDS SUMMARY | 2024-06-06 11:56 | XMS_ITS | Clinical Summary ---
Author Organization [facility] Address [address] [place] [address] Care Team Providers Care Silo Tender Name Role Phone Name, Brent PRESTON Primary Care Provider [phone] Allergies No known active allergies Medications mirabegron ER (Myrbetriq) 50 MG 24 hr tablet Take 1 tablet by mouth in the morning. Swallow whole with water. Do not crush, chew and/or divide Active acetaminophen (Tylenol) 500 MG tablet Take 1 tablet by mouth every 6 (six) hours. 1 Active estradiol (Estrace) 0.1 MG/GM vaginal cream Insert 1 g into the vagina 2 (two) times a week. 42.5 g 2 4 08/21/19 25 Active Calcium Carb-Cholecalcife rol 600-10 MG-MCG tablet TAKE 1 TABLET BY MOUTH TWICE DAILY AT NOON AND IN THE EVENING 180 tablet 3 4 Active Diclofenac Sodium 1 % gelIndications:Ch ronic pain of right knee APPLY 2 GRAMS TOPICALLY EVERY TWELVE HOURS 100 g 1 4 Active lidocaine (Lidoderm) 5 % patchIndications: Chronic pain of right knee APPLY 1 PATCH TOPICALLY TO SKIN, LEAVE ON FOR 12 HOURS AND OFF FOR 12 HOURS DIRECTED 30 patch 1 4 Active docusate sodium (Colace) 100 MG capsuleIndication s:Constipation, unspecified constipation type TAKE 1 CAPSULE BY MOUTH TWICE DAILY AT NOON AND IN THE EVENING 180 capsule 4 Active omeprazole (PriLOSEC) [address] capsule TAKE 1 CAPSULE BY MOUTH EVERYDAY AT NOON BEFORE MEALS 90 capsule 1 5 Active simvastatin (Zocor) 40 MG tablet TAKE 1 TABLET BY MOUTH AT BEDTIME 90 tablet 1 5 Active aspirin (Aspirin Low Dose) 81 MG EC tablet TAKE 1 TABLET BY MOUTH EVERYDAY AT NOON 90 tablet 1 5 Active levothyroxine (Synthroid, Levoxyl) 100 MCG tablet TAKE 1 TABLET BY MOUTH EVERY MORNING ON MONDAY THROUGH MONDAY OF EACH WEEK (HOLD ON MONDAY AND MONDAY) 90 tablet 2 5 Active Active Problems Problem Noted Date Diagnosed Date Hypertension 05/31/2023 Peripheral vascular disease 05/31/2023 Pain of lower extremity 05/31/2023 Mixed stress and urge urinary incontinence 05/31 Blindness of left eye with n ormal vision in contralateral eye 02/06/2023 02/06/2023 Gastroesophageal reflux disease with esophagitis 02/06/2023 02/06/2023 Glaucoma 02/06/2023 02/06/2023 Increased frequency of urination 02/06/2023 02/06/2023 Midline cystocele 02/06/2023 02/06/2023 Nocturia 02/06/2023 02/06/2023 Urinary urgency 02/06/2023 02/06/2023 Prediabetes 02/17/2022 Vision loss of left eye 09/17/2018 Right knee pain 03/19/2018 Assessment & Plan (12/23/2023 5:10 PM EDT): Pt w likely OA of right knee -Tylenol PRN -diclofenac topical -lidoderm patch -XR right knee order today---will inform pt result and will offer accordingly PT or orthopedic to pt Venous (peripheral) insufficiency 03/19/2018 Cleft palate 09/28/2017 Atrophic vaginitis 04/06/2015 Cataract 04/06/2015 Acquired hypothyroidism 04/06/2015 Hyperlipidemia 04/06/2015 Osteopenia 04/06/2015 Hypertensive disorder 04/06/2015 Resolved Problems Problem Noted Date Diagnosed Date Resolved Date Hypothyroidism 05/31/2023 08/29/2023 Vaginal atrophy 05/31/2023 08/29/2023 Headache 05/31/2023 08/29/2023 Somnolence 05/31/2023 08/29/2023 Shortness of breath 05/31/2023 08/29/19 Paresthesia 05/31/2023 08/29/2023 Disorder of vein 05/31/2023 08/29/2023 Dermatitis of vulva 02/06/2023 02/06/2023 08/29/19 24 Tachycardia 02/06/2023 02/06/2023 02/06/2023 Chronic right shoulder pain 02/17/2022 08/29/2023 Near syncope 02/17/2022 06/09/2022 Facial paresthesia 09/17/2018 Stress incontinence of urine 09/17/2018 08/29/2023 Dysuria 09/17/2018 06/09/2022 Chronic nonintractable headache 09/17/2018 08/29/2023 Urinary incontinence 01/12/2018 023 Cardiovascular stress test abnormal 07/05/2017 06/09/2022 Dyspnea on exertion 01/14/2016 06/10/19 23 Drowsy 01/14/2016 06/09/2022 Snoring 01/14/2016 10/12/2022 Gastroesophageal reflux disease 04/06/2015 08/29/2023 Peripheral arterial occlusive disease 04/06/2015 08/29/2023 Supraventricular tachycardia 04/06/2015 08/29/2023 Encounters Date Type Department Care Team Description 06/06/2024 9:00 AM EST Office Visit [facility] [address] [place] [address] Kecia Paniagua DO Generalized abdominal pain (Primary Dx) 06/05/2024 Telephone [facility] [address] [place] [address] NameBrent MD Nurse Triage 05/04/2024 Refill [facility] [address], [place] [phone] Brent Benitez MD 04/24/2024 Refill [facility] [address] [place], [place] [phone] Brent Benitez MD 03/21/2024 Refill [facility] [address] [place], [place] [phone] Brent Benitez MD Constipation, unspecified constipation type from Last 3 Months Immunizations Name Administration Dates Next Due Influenza High-dose Quadriva lent Preservative Free 02/06/2023,12/30/2021 Influenza Quadrivalent Adjuvanted 01/08/2021 Influenza injectable quadriv alent IIV4 with preservative 01/14/2016,12/15/2014 Influenza, High Dose Seasona l, Preservative Free 02/21/2024,04/30/2019,01/12/2018 Influenza, IIV3, injectable 03/05/2014, 1 Influenza, Split (incl. kel[place] fied surface antigen) 01/23/2013,01/25/2012 Influenza, seasonal, injecta ble, preservative free 12/16/2019 Moderna Covid-19 Vaccine 12+ 11/29/2021, 04/21/2021,07/02/2020,06/04 Pneumococcal Conjugate PCV 13 09/28/2017 Pneumococcal Conjugate PCV 20 08/29/2023 Pneumococcal Polysaccharide PPSV23 01/11/2000 TD (adult), 2 Lf tetanus tox oid, preservative free, adsorbed 05/29/2008,12/14/1998 Tdap 09/28/2017 Zoster, Recombinant 12/30/2021 Zoster, live 09/04/2013 Social History Tobacco Use Types Packs/Day Years Used Date Smoking Tobacco: Never Smokeless Tobacco: Never Tobacco Cessation:Counseling Given: Not Answered Alcohol Use Standard Drinks/Week Comments Never 0 [...] Orientation Straight 12/22/2023 3: 16 PM EDT Last Filed Vital Signs Vital Sign Reading [...] Mass Index 28.34 06/06/2024 9:16 AM EST Plan of Treatment Health Maintenance Due Date Last Done Comments RSV Patients and Patients Aged 60 years or older (1 - 1-dose 75+ series) 2014 Zoster Vaccines (3 of 3) 02/24/2022 12/30/2021, 07/2013 COVID-19 Vaccine ( season) 2023 11/29/2021, 04/21/2021, 07/02/2020, Additional history exists Depression Screening 12/21/2024 12/22/2023, 12/22/19 Diabetes: Hemoglobin A1C 12/21/2024 12/22/2023, 04/04 Alcohol/Substance Use Screening 02/20/2025 02/21/2024 SDOH Screening 02/20/2025 02/21/2024 Tobacco Screening 06/06/2025 06/06/2024 DTaP/Tdap/Td Vaccines (2 - Td or Tdap) 09/29/2027 09/28/2017, 05/29/2008, 12/14/1998 Lipid Panel 10/20/2027 10/19/2022, 05/15/2020 Pneumococcal Vaccine: 50+ Years Completed 08/29/2023, 09/28/2017, 01/11/2000 Influenza Vaccine Completed 02/21/2024, , 12/30/2021, Additional history exists HIB Vaccines Aged Out No longer eligi ble based on patient's age to complete this topic HPV Vaccines Aged Out No longer eligi ble based on patient's age to complete this topic Hepatitis A Vaccines Aged Out No long er eligible based on patient's age to complete this topic Hepatitis B Vaccines Aged Out No long er eligible based on patient's age to complete this topic IPV Vaccines Aged Out No longer eligi ble based on patient's age to complete this topic Meningococcal Vaccine Aged Out No shira janie eligible based on patient's age to complete this topic RSV under 20 months Aged Out No longe r eligible based on patient's age to complete this topic Rotavirus Vaccines Aged Out No longer eligible based on patient's age to complete this topic Procedures Procedure Name Priority Date/Time Associated Diagnosis Comments POCT URINALYSIS DIPSTICK Routine 06/06/2024 10:08 AM EST Generalized abdominal pain POCT HEMOGLOBIN Routine 06/06/2024 9:54 AM EST Generalized abdominal pain POCT GLYCOSYLATED HEMOGLOBIN (HGB A1C) Routine 12/22/2023 1:29 PM EDT Prediabetes LIPID PANEL, STANDARD Routine 10/19/2022 8:06 AM EDT Acquired hypothyroidism On aspirin at home On statin therapy from Last 3 Months or Most Recently Relevant to Health Maintenance Results * (ABNORMAL) POCT Urinalysis (06/06/2024 10:08 [...] * POCT Hemoglobin (06/06/2024 9:54 AM EST) Pathologist [facility] Hemoglobin 13.1 12.0 - 15.0 QC Media Lot # [id number] Lot# Expiration Date Blood 06/06/2024 9:54 AM EST Kecia Paniagua DO POINT OF CARE TEST ENTER/NIMA T ORDERABLES Final Result * (ABNORMAL) POCT glycosylated hemoglobin (Hgb A1c) (12/22/2023 1:29 PM EDT) Pathologist [facility] Hemoglobin A1C 6.3(A) 4.0 - 6.0 % QC Media Lot # [id number] Lot# Expiration Date Blood Capillary blood specimen / Unknown 12/22/2023 1:29 PM EDT Mary Ann Stinson MD POINT OF CARE JOHNNY T ENTER/EDIT ORDERABLES Final Result * Lipid Panel, Standard (10/19/2022 8:06 AM EDT) Pathologist [facility] Triglycerides 137 mg/dL [facility] Comment:Desirable Triglyceri de: less than 150 mg/dLBorderline High Triglyceride 150-199 mg/dLHigh Triglyceride: 200-499 mg/dLVery High Triglyceride: greater than or equal to 5OO mg/dL Cholesterol 169 mg/dL [facility] Comment:Desirable Cholestero l: less than 200 mg/dLBorderline High Cholesterol: 200-239 mg/dLHigh Cholesterol: greater than 239 mg/dL LDL Cholesterol Calculated 94 mg/dl [facility] Comment:Desirable LDL: less than 100 mg/dLNear Optimal/Above Optimal LDL: 110- 129 mg/dLBorderline High LDL: 130-159 mg/dLHigh LDL: 160-189 mg/dLVery High LDL: greater than or equal to 190 mg/dL HDL Cholesterol 48 mg/dL [facility] Comment:Desirable HDL: great er than 40 mg/dL Note: This HDL assay may give artificially low results in patients with liver disease. Blood Venous blood specimen / Unknown 10/19/2022 8:06 AM EDT 10/19/2022 8:06 AM EDT us Brent Benitez MD LAB BLOOD ORDERABLES Final Resul t [facility] [address] [place] [address] [phone] from Last 3 Months or Most Recently Relevant to Health Maintenance Insurance [facility] Care Teams Silo Tender Relationship Specialty Start Date End Date Name, MD Brent [address] [place] [address] PCP - General Family Medicine 06/29/15
--- OUTSIDE RECORDS SUMMARY | 2024-06-06 11:56 | XMS_ITS | Encounter Summary ---
Author Organization [employer] Address [address] [place] [address] Care Team Providers Care Industrial Services Worker Name Role Phone Name, Brent PRESTON Primary Care Provider [phone] Reason for Visit * Reason Onset Date Comments Durable Medical Equipment 07/14/2022 Encounter Details Date Type Department Care Team ([facility] st Contact Info) Description 07/14/2022 Telephone [facility] [address] [place], [place] [phone] Name, MD Brent [address] [place] [address] Durable Medical Equipment Social History Tobacco Use Types Packs/Day Years Used Date Smoking Tobacco: Never Smokeless Tobacco: Never Alcohol Use Standard Drinks/Week Comments Never 0 (1 standard drink = 0.6 oz pur e alcohol) Comments Unknown Sex and Gender Information Value Date Recorded Sex Assigned at Female 01/31/2022 10:15 AM EDT Legal Sex Female 10:15 AM EDT Gender Identity Female 01/31/2022 10:15 AM EDT Sexual Orientation Straight 12/22/2023 3: 16 PM EDT documented as of this encounter Miscellaneous Notes * Telephone Encounter - Zuly Roblero - 07/28/2022 3:18 PM EDT Form for requested DMEs received from [employer] and placed on providers desk for signature * Telephone Encounter - Jenniferkrystinajairon Josueamando Bautista - 07/14/2022 4:26 PM EDT Tc from [employer] hardware press operator stating that [employer] faxed over a form for provider to sign regarding an order of Gloves (size medium) per month, Wipes 2 boxes per month, Pull ups ( size Large) 112 per month, and Disposable Pads 112 per month as well. Please contact Emilee at [phone] EXT: [phone] documented in this encounter Plan of Treatment Not on file documented as of this encounter Visit Diagnoses Not on filedocumented in this encounter Care Teams Industrial Services Worker Relationship Specialty Start Date End Date Name, MD Brent [address] [place] [address] PCP - General Family Medicine 06/29/15 documented as of this encounter
[2024-06-06 12:02] LABS: Hematocrit 41.6 % (37.0-47.0); Mean Corpuscular HGB Conc 31.3 g/dl (31.0-35.0); Mean Corpuscular Hemoglobin 26.2 pg (27.0-33.0); Mean Corpuscular Volume 83.9 fL (80.0-98.0); Mean Platelet Volume 11.2 fL (9.4-12.3); Platelet Count 234 X10*3/uL (160-400); Red Blood Count 4.96 X10*6/uL (4.20-5.50); Red Cell Distribution Width 15.6 % (11.0-16.0); White Blood Count 7.1 X10*3/uL (4.8-10.8)
[2024-06-06 12:29] LABS: Estimated Average Glucose 126 mg/dL
[2024-06-06 12:31] LABS: Alanine Aminotransferase 16 U/L (0-31); Albumin Level 4.1 g/dL (3.5-5.0); Alkaline Phosphatase 56 U/L (39-117); Amylase 57 U/L (28-100); Anion Gap 12 (12-20); Aspartate Amino Transferase 23 U/L (5-31); Bilirubin Direct 0.1 mg/dL (0.0-0.5); Bilirubin Total 0.3 mg/dL (0.0-1.0); Blood Urea Nitrogen 15 mg/dL (9-16); Calcium 9.8 mg/dL (8.4-10.2); Carbon Dioxide 29 mmol/L (22-29); Chloride 107 mmol/L (96-108); Cholesterol 145 mg/dL (<200); Estimated Glomerular Filt Rate > 60; Glucose Random 88 mg/dL (60-115); HDL Cholesterol 51 mg/dL (>40); LDL Cholesterol Calculated 76 mg/dL (<100); Lipase 19 U/L (8-78); Potassium 4.5 mmol/L (3.3-5.1); Sodium 143 mmol/L (135-145); Total Protein 7.9 g/dL (6.5-8.0); Triglycerides 90 mg/dL (<150)
[2024-06-06 12:51] LABS: Free T4 (Free Thyroxine) 0.92 ng/dL (0.71-1.85); Thyroid Stimulating Hormone 4.32 uIU/mL (0.32-4.0); Vitamin D 25-OH Total 41.7 ng/mL (>30)
== END 2024-06-06 10:11 | disposition home or self-care (01) ==
LOC: HO.HHCL 10:10
PROVIDERS: Visit Provider Family Medicine
DX: R10.84 Generalized abdominal pain (principal); Z13.1 Encounter for screening for diabetes mellitus; Z13.6 Encounter for screening for cardiovascular disorders
CPT/HCPCS: 36415; 80048; 80061; 80076; 82150; 82306; 83036; 83690; 84439; 84443; 85027; 87086; 87147

== ENCOUNTER 2024-06-19 13:33 | Outpatient (REF) | payer OTHER, SELFPAY | END 2024-06-19 13:34 | disposition home or self-care (01) | LOC: HO.CT 13:33 | PROVIDERS: PCP Internal Medicine Geriatric Medicine; Visit Provider Family Medicine | DX: Z13.89 Encounter for screening for other disorder (principal) ==

== ENCOUNTER 2024-07-16 08:59 | Outpatient (REF) | payer OTHER, SELFPAY ==
--- NOTE | ~2024-07-16 | CT_ITS ---
CLINICAL HISTORY: ABD PAIN CT abdomen and pelvis with contrast Comparison: 07/13/2023 Findings: Lung bases are clear. No acute bony abnormalities. Liver and spleen within normal limits. Pancreas and adrenal glands unremarkable. Gallbladder contracted and not assessed. No significant focal renal abnormalities. Renal cysts, no stones or hydronephrosis. Abdominal aorta is normal in caliber. No free fluid or adenopathy in the pelvis. No diverticulitis. Appendix unremarkable. Hysterectomy. No adnexal abnormality. Impression: No acute process This document has been electronically signed by: Mario Anne MD on 07/17/2024 20:10:48
[2024-07-16] MEDS: iohexoL 350 MG/ML 100 ML INFUS..BTL IV (11:58)
[2024-07-16] MEDS: Barium Sulfate Oral (Berry) 450 ML ORAL.SUSP PO ×2 (11:59)
[2024-07-16 13:27] LABS: Creatinine POC 0.8 mg/dL (0.5-1.4); GFR POC > 60
== END 2024-07-16 09:00 | disposition home or self-care (01) ==
LOC: HO.CT 08:59
PROVIDERS: PCP Family Medicine; Visit Provider Family Medicine
DX: R10.84 Generalized abdominal pain (principal)
CPT/HCPCS: 74177; 82565; Q9967

== ENCOUNTER → 2024-07-16 11:00 | Outpatient (BNV) | payer OTHER, SELFPAY | PROVIDERS: PCP Family Medicine; Visit Provider Radiology Diagnostic Radiology | DX: R10.9 Unspecified abdominal pain (principal) | CPT/HCPCS: 74177 ==

== ENCOUNTER 2024-10-17 15:21 | Emergency (ER) | payer OTHER, SELFPAY ==
--- NOTE | ~2024-10-17 | CT_ITS ---
CLINICAL HISTORY: fall, head strike, pain CT Brain without contrast Comparison: None FINDINGS: Cortical sulci: There is diffuse prominence of the cortical sulci compatible with age-related atrophy. Ventricles: Normal for age Brain parenchyma: There is patchy lucency throughout the deep white matter indicating chronic microvascular leukomalacia. Extra axial spaces: Normal Posterior Fossa: Normal Extracranial soft tissues: Normal Additional abnormality: None IMPRESSION: Age-related atrophy with chronic microvascular leukomalacia. No hemorrhage, mass effect, or acute findings identified. This document has been electronically signed by: Chiquita Khan MD on 10/17/2024 18:16:26
--- NOTE | ~2024-10-17 | XR_ITS ---
EXAMINATION: XR ELBOW, LEFT CLINICAL INFORMATION: pain, injury COMPARISON: None available. TECHNIQUE: AP, lateral, and oblique views of the left elbow. FINDINGS: No fracture, dislocation, or suspicious bone lesion. There is normal alignment. Joint spaces are maintained. No joint effusion is evident. There is mild enthesopathic spurring of the epicondyles bilaterally. No soft tissue abnormalities. XR/XR elbow LT min 3V IMPRESSION: No acute bony abnormalities of the left elbow. No joint effusion. Electronically signed by: Fred Mcgregor MD 10/17/2024 04:51 PM EDT
--- NOTE | ~2024-10-17 | CT_ITS ---
CLINICAL HISTORY: fall, head strike, pain CT cervical spine without contrast Comparison: None provided Findings: Vertebral alignment is within normal limits. There is mild degenerative change. No acute fractures or dislocations. Visualized intracranial contents are unremarkable. Soft tissues of the neck are normal. Lung apices are clear. IMPRESSION: No acute findings. This document has been electronically signed by: Chiquita Khan MD on 10/17/2024 18:13:57
[2024-10-17 15:24] VITALS: BP 132/79; PULSE 70; O2SAT 98
[2024-10-17 15:29] VITALS: RESP 18; BMI 24.8
[2024-10-17 15:35] VITALS: BP 143/62; PULSE 70; RESP 16; TEMP 36.8; O2SAT 97
--- NOTE | 2024-10-17 15:41 | ED_ITS ---
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 Patient states that she tripped down her front stairs and injured her left elbow and her head. Patient states that she is not on blood thinners an d she did not lose consciousness. Patient denies any dizziness, lightheadedness, abdominal pain, nausea, vomiting, fever, chills, blurry vision, double vision, loss of vision, chest pain, difficulty breathing, shortness of breath, back pain, night sweats, pain with urination, increased urinary frequency, increased urinary urgency, blood in her urine or stool, syncope or a near syncopal episode, bowel incontinence, bladder incontinence, or any other complaints at this time. Relieving factors: none Exacerbating factors: none Associated symptoms: denies other symptoms Treatments prior to arrival: none Related Data Home Medications ?Medication ?Instructions ?Recorded ?Confirmed aspirin 81 mg tablet,delayed 81 mg PO DAILY 01/30/24 release diclofenac sodium 1 % topical gel 2 g topical Q12H levothyroxine 100 mcg tablet mcg PO 01/30/24 omeprazole 20 mg capsule,delayed 20 mg PO DAILY release simvastatin 40 mg tablet 40 mg PO BEDTIME 01/30/24 Previous Rx's ?Medication ?Instructions ?Recorded ondansetron 4 mg disintegrating 4 mg PO Q8H PRN nausea and 07/13/23 tablet vomiting #20 tabs Allergies Allergy/AdvReac Type Severity Reaction Status Date / Time gadoteridol (From Prohance) Allergy Mild HIVES Verified 10/17/24 15:30 Review of Systems Constitutional: Constitutional: Reports no additional constitutional complaints, Denies chills, Denies fever(s), Reports headache(s) and Denies night sweats Eyes: Eyes: Reports no additional eye complaints, Denies blurry vision, Denies change in vision, Denies diplopia, Denies eye discharge, Denies loss of vision a nd Denies eye pain ENT: Denies dizziness and Reports headache(s) Cardiovascular: Cardiovascular: Reports no additional cardiovascular complaints, Denies chest pain, Denies lightheadedness, Denies Loss of Consciousness and Denies dyspnea Respiratory: Respiratory: Reports no additional respiratory complaints and Denies dyspnea Gastrointestinal: Gastrointestinal: Reports no additional gastrointestinal complaints, Denies abdominal pain, Denies melena, Denies hematochezia, Denies change in bowel habits and Denies change in stool character Genitourinary: Genitourinary: Denies hematuria, Denies urinary frequency, Denies dysuria, Denies urinary incontinence, Denies urinary hesitancy and Denies urinary urgency Musculoskeletal: Musculoskeletal: Reports no additional musculoskeletal complaints, Denies numbness and Denies tingling Comments: left elbow pain / abrasion Neurologic: Denies dizziness, Reports headache(s), Denies loss of vision, Denies numbness and Denies tingling Psychiatric: Psychiatric: Reports no additional psychiatric complaints Endocrine: Endocrine: Reports no additional endocrine complaints Hematologic/Lymphatic: Hematologic/Lymphatic: Reports no additional hematologic/lymphatic complaints Allergic/Immunologic: Allergic/Immunologic: Reports no additional allergic/immunologic complaints PMFSH Past Medical History Attestation statement: The following information was validated with the patient. Source: old records reviewed and nursing notes reviewed Social History Social History Alcohol intake: former Patient Tobacco Use Status: Never used Tobacco Smoked in Last 30 Days: No Use of substances other than those prescribed or required for medical reasons: No Advance Directives: No Advance Directives Information Provided: No Physical Exam ED Vital Signs: Vital Signs - 24 hr 10/17/24 15:29 10/17/24 15:35 Temperature 98.3 F Pulse Rate 70 Respiratory Rate 18 16 Blood Pressure 143/62 H Pulse Oximetry 97 Oxygen Delivery Method Room Air Room Air BMI result Body Mass Index 24.8 Const General: cooperative, no acute distress, alert and awake Nutritional Appearance: well nourished Orientation/consciousness: patient oriented x3 HENMT Head: Yes normal to inspection and Yes atraumatic Ears: hearing grossly normal bilaterally and external ears normal General nose exam: Normal external nose present, no nasal discharge noted and no epistaxis Face and sinus: Yes normal facial exam, No abrasion and No laceration Mouth: Normal oral and palatal mucosa present, no drooling and no muffled voice Eyes General: appearance normal, both eyes and all related structures Periorbital: periorbital findings normal Eyelids: Yes eyelids normal Conjunctivae: conjunctivae normal Pupils: Equal, round and reactive pupils present EOM: EOMs intact bilaterally Neck Neck: Yes normal visual inspection, Yes full ROM and Yes no lymphadenopathy Resp Effort & Inspection: normal respiratory effort and able to speak in complete sentences Neuro General: patient oriented x3, moves all extremities and CN's II-XI intact bilaterally Cranial nerves: Yes Equal, round and reactive pupils present Cognition (Neuro): normal cognition Extrem Other: small abrasion to left elbow - no gaping, no bleeding General: Yes full ROM and Yes capillary refill normal Psych Appearance: grossly normal Mental Status: mental status grossly normal Affect: normal affect Attitude: cooperative Thought process: Normal thought process present Thought content: Normal thought content present Insight: Good insight present (Psych) Medical Decision Making Medical Decision Making MDM Narrative: Patient is an 84 year old assigned female at with a history of arthritis presenting to the emergency department today with left elbow pain and a headache after a fall. Patient's physical exam was as noted in the physical exam portion of this note. Patient's left elbow x-ray showed no acute process. Patient's CT head and c-spine are pending. I explained my physical exam findings as well as all test results to the patient. I answered all questions asked by the patient. Patint signed out to MARQUES Travis pending CT head and c-spine read. >> sign-out given to me pending CT head and C-spine. These were unremarkable for any acute findings. Cervical collar was removed. Discussed overall workup with patient today. Patient is well-appearing, eager for discharge. Patient lives with daughter at home, they feel safe for disposition home. Patient stable for discharge. Differential Diagnosis Differential Diagnoses: The differential diagnosis associated with the presentation includes Fall Cervical strain Elbow abrasion Admission/Observation Consideration of admission/observation: Escalation of care including admission/observation considered Patient's disposition will be determined after CT head and c-spine are performed, read, and the patient is re-evaluated. Independent Interpretation I performed an independent interpretation of an: Plain X-Ray Interpretation: My interpretation is in agreement with the radiologist's impression of this imaging study. EXAMINATION: XR ELBOW, LEFT CLINICAL INFORMATION: pain, injury COMPARISON: None available. TECHNIQUE: AP, lateral, and oblique views of the left elbow. FINDINGS: No fracture, dislocation, or suspicious bone lesion. There is normal alignment. Joint spaces are maintained. No joint effusion is evident. There is mild enthesopathic spurring of the epicondyles bilaterally. No soft tissue abnormalities. XR/XR elbow LT min 3V IMPRESSION: No acute bony abnormalities of the left elbow. No joint effusion. Electronically signed by: Fred Mcgregor MD 10/17/2024 04:51 PM EDT Dictated By: Fred Mcgregor MD Signed By: Electronically signed by Fred Mcgregor MD 10/17/24 0390 Radiology Impression Discussion of test interpretation with radiology: I have reviewed the radiologist's reading. Independent Historian Clinical information obtained from an independent historian. History obtained from or confirmed by: EMS (EMS provided additional history and confirmed the history provided by the patient. ) Discharge Plan Discharge Clinical Impression: Abrasion of elbow, Fall Patient Disposition: Home, Self-Care Instructions: Abrasion (ED) Additional Instructions: Diane was seen in the emergency department after a trip and fall. The head CT and neck CT revealed no acute findings. The x-ray of the left elbow reveals no acute bony abnormalities. She may take Tylenol as needed for pain. Rest, ice, gentle stretching and massage can help. Follow-up with the primary care physician. If any new or worsening symptoms occur including but not limited to severe headache, dizziness, chest pain, shortness of breath, please seek emergent care. Prescriptions: No Action ondansetron 4 mg tablet,disintegrating 4 mg PO Q8H PRN (Reason: nausea and vomiting) Qty: 20 0RF levothyroxine 100 mcg tablet PO aspirin 81 mg tablet,delayed release (DR/EC) 81 mg PO DAILY simvastatin 40 mg tablet 40 mg PO BEDTIME omeprazole 20 mg capsule,delayed release(DR/EC) 20 mg PO DAILY diclofenac sodium 1 % gel 2 g topical Q12H Print Language: Persian
--- NOTE | 2024-10-17 15:42 | PC.NURSE ---
pt family Mary Ann Carpenter [phone] for health related information/ transportation needs
--- OUTSIDE RECORDS SUMMARY | 2024-10-17 16:53 | XMS_ITS | Encounter Summary ---
Author Organization [employer] Address [address] [place] [address] Care Team Providers Care Instructional Services Librarian Name Role Phone Name, Brent PRESTON Primary Care Provider Reason for Visit * Reason Onset Date Comments Durable Medical Equipment 07/14/2022 Encounter Details Date Type Department Care Team ([facility] st Contact Info) Description 07/14/2022 Telephone [facility] [address], [place] [id number] Name, MD Brent [address] [place] [address] Durable Medical Equipment Social History Tobacco Use [...] EDT Form for requested DMEs received from [employer] and placed on providers desk for signature * Telephone Encounter - Jenniferkrystinajairon Josueamando Bautista - 07/14/2022 4:26 PM EDT Tc from [employer] collar cutter stating that [employer] faxed over a form for provider to sign regarding an order of Gloves (size medium) per month, Wipes 2 boxes per month, Pull ups ( size Large) 112 per month, and Disposable Pads 112 per month as well. Please contact [employer] at [phone] EXT: [phone] documented in this encounter Plan of Treatment Not on file documented as of this encounter Visit Diagnoses Not on filedocumented in this encounter Care Teams Instructional Services Librarian Relationship Specialty Start Date End Date Name, MD Brent [address] [place] [address] PCP - General Family Medicine 06/29/15 documented as of this encounter
[2024-10-17 18:52] VITALS: BP 143/62; PULSE 70; RESP 16; TEMP 36.8; O2SAT 97
== END 2024-10-17 18:52 | disposition home or self-care (01) ==
PROVIDERS: Emergency Provider Emergency Medicine
DX: S50.312A Abrasion of left elbow, initial encounter (principal); R51.9 Headache, unspecified; M54.2 Cervicalgia; M25.522 Pain in left elbow; W10.9XXA Fall (on) (from) unspecified stairs and steps, initial encounter; Y93.01 Activity, walking, marching and hiking; Y92.9 Unspecified place or not applicable; Y99.8 Other external cause status
CPT/HCPCS: 70450; 72125; 73080; 99284

== ENCOUNTER → 2024-10-17 15:47 | Outpatient (BNV) | payer OTHER, SELFPAY | PROVIDERS: Visit Provider Radiology Diagnostic Radiology | DX: M54.2 Cervicalgia (principal); I67.89 Other cerebrovascular disease; G93.89 Other specified disorders of brain; S59.902A Unspecified injury of left elbow, initial encounter; M25.522 Pain in left elbow; W19.XXXA Unspecified fall, initial encounter | CPT/HCPCS: 70450; 72125; 73080 ==